=== PATIENT | female | born 1965 | race Two or more races ===

== ENCOUNTER → 2021-06-15 | Outpatient (CLI) | payer BC ==
[~2021-06-15] MED LIST: FOLI1TAB32 PO; HYDR200T72 PO; LOSA100T14 PO; METH2.5T PO
[2021-06-15 13:51] LABS: ALANINE AMINOTRANSFERASE 41 U/L (12-78); ALBUMIN 3.7 g/dL (3.4-5.0); ANION GAP 7 mmol/L (5-15); CALCIUM 8.9 mg/dL (8.5-10.1); CHLORIDE 114 mmol/L (98-107)
[2021-06-15 13:53] LABS: ALKALINE PHOSPHATASE 158 U/L (45-117); BILIRUBIN,TOTAL 0.5 mg/dL (0.2-1.0); TOTAL PROTEIN 7.4 g/dL (6.4-8.2)
== END | disposition home or self-care (01) ==
LOC: STAR 12:46
PROVIDERS: ATTEND Orthopaedic Surgery
DX: Z01.812 Encounter for preprocedural laboratory examination (principal); M17.12 Unilateral primary osteoarthritis, left knee; Z20.822 Contact with and (suspected) exposure to COVID-19
CPT/HCPCS: 36415; 80053; 87081; U0003; U0005

== ENCOUNTER 2021-06-19 07:04 | Day surgery (SDC) | payer BC ==
[~2021-06-19] VITALS: Ht 162.6 cm; Wt 100.1 kg
[2021-06-19] MEDS ORDERED: MAGNESIUM HYDROXIDE 8%, 30ML UDC PO PRN (07:30)
[2021-06-19] MEDS ORDERED: POLYETHYLENE GLYCOL 17 GM PACKET PO PRN (07:30)
[2021-06-19] MEDS ORDERED: DIPHENHYDRAMINE 50 MG/ML, 1ML IVPush PRN (07:30)
[2021-06-19] MEDS ORDERED: HYDROmorphone 1 MG/ML, 1ML INJ IVPush PRN ×2 (07:30→09:00)
[2021-06-19] MEDS ORDERED: ALUMINUM/MAG/SIMETHICONE 30 ML UDC PO PRN (07:30)
[2021-06-19] MEDS ORDERED: ACETAMINOPHEN 650 MG/20.3 ML UDC PO PRN (07:30)
[2021-06-19] MEDS ORDERED: OXYcodone IR 5MG TABLET PO PRN (07:30)
[2021-06-19] MEDS ORDERED: PSYLLIUM PACKET PO PRN (07:30)
[2021-06-19] MEDS ORDERED: SENNA/DOCUSATE TABLET PO PRN (07:30)
[2021-06-19] MEDS ORDERED: PROMETHAZINE 12.5 MG SUPP PR PRN (07:30)
[2021-06-19] MEDS ORDERED: METOCLOPRAMIDE 5 MG/ML, 2ML IVPush PRN (07:30)
[2021-06-19] MEDS ORDERED: ONDANSETRON 4 MG TABLET PO PRN (07:30)
[2021-06-19] MEDS ORDERED: ONDANSETRON 2MG/ML, 2ML IVPush PRN ×2 (07:30→09:00)
[2021-06-19 07:49] VITALS: BP 143/91
[2021-06-19] MEDS ORDERED: CHLORHEXIDINE 15 ML UDC ONE (07:54)
[2021-06-19] MEDS ORDERED: CHLORHEXIDINE 15 ML UDC PO ONE (08:00)
[2021-06-19] MEDS ORDERED: LACTATED RINGERS 1,000 ML IV SCH (08:00)
[2021-06-19] MEDS ORDERED: MEPERIDINE/PF 25MG/0.5ML IVPush PRN (09:00)
[2021-06-19] MEDS ORDERED: PROMETHAZINE 25 MG/ML, 1ML IVPush PRN (09:00)
[2021-06-19] MEDS ORDERED: KETOROLAC 30 MG/1 ML IVPush PRN (09:00)
[2021-06-19] MEDS ORDERED: LOSARTAN 100 MG TAB PO SCH (09:00)
[2021-06-19] MEDS ORDERED: DOCUSATE 100 MG CAPSULE PO SCH (09:00)
[2021-06-19] MEDS ORDERED: HYDROcodone/APAP 7.5-325MG/15ML UDC PO PRN (09:00)
[2021-06-19] MEDS ORDERED: OXYcodone 5 MG/5 ML ORAL.SOL UDC PO PRN (09:00)
[2021-06-19] MEDS ORDERED: TAMSULOSIN 0.4 MG CAP.ER.24H PO SCH (09:00)
[2021-06-19] MEDS ORDERED: FENTANYL PF 100 MCG/2ML ONE ×3 (10:04→13:53)
[2021-06-19] MEDS ORDERED: MIDAZOLAM 1 MG/ML, 2ML ONE (10:04)
[2021-06-19] MEDS ORDERED: SODIUM CHLORIDE 0.9% 50 ML ONE (10:44)
[2021-06-19] MEDS ORDERED: ROPIvacaine/PF 0.2%, 20 ML ONE (10:44)
[2021-06-19] MEDS ORDERED: TRANEXAMIC ACID 100 MG/ML, 10ML ONE (10:44)
[2021-06-19] MEDS ORDERED: KETOROLAC 60 MG/2 ML ONE (10:44)
[2021-06-19] MEDS ORDERED: EPINEPHRINE 1 MG/ML, 1ML INFIL ONE (12:00)
[2021-06-19] MEDS ORDERED: NEOSTIGMINE 1 MG/ML, 10ML ONE (12:40)
[2021-06-19] MEDS ORDERED: GLYCOPYRROLATE 0.2MG/1ML, 5ML ONE (12:40)
[2021-06-19] MEDS ORDERED: SUCCINYLCHOLINE 20 MG/ML, 10ML ONE (12:40)
[2021-06-19] MEDS ORDERED: ONDANSETRON 2MG/ML, 2ML ONE (12:40)
[2021-06-19] MEDS ORDERED: ROCURONIUM 10MG/ML,5ML ONE (12:40)
[2021-06-19] MEDS ORDERED: CEFAZOLIN 1,000 MG ONE (12:40)
[2021-06-19] MEDS ORDERED: DEXAMETHASONE 4 MG/ML, 1ML ONE (12:40)
[2021-06-19] MEDS ORDERED: PROPOFOL 10 MG/ML, 20ML ONE (12:40)
[2021-06-19] MEDS ORDERED: POTASSIUM CHLORIDE 20 MEQ in D5%-0.45% NACL 1,000 ML IV SCH (13:24)
[2021-06-19] MEDS ORDERED: TRANEXAMIC ACID 1,000 MG in SODIUM CHLORIDE 0.9% 100 ML IVPB ONE (13:32)
[2021-06-19] MEDS ORDERED: KETOROLAC 30 MG/1 ML ONE (13:46)
[2021-06-19] MEDS ORDERED: OXYcodone 5 MG/5 ML ORAL.SOL UDC ONE ×2 (13:53→13:58)
[2021-06-19] MEDS: FENTANYL PF 100 MCG/2ML IV PRN ×2 (13:56→14:05)
[2021-06-19] MEDS ORDERED: DIPHENHYDRAMINE 25 MG CAPSULE PO PRN (14:00)
[2021-06-19] MEDS ORDERED: HYDROmorphone 2 MG/ML, 1ML ONE (14:15)
[2021-06-19] MEDS ORDERED: ASPIRIN 81 MG TABLET EC PO SCH (18:00)
[2021-06-19] MEDS ORDERED: KETOROLAC 30 MG/1 ML IV SCH (18:30)
[2021-06-19] MEDS ORDERED: CEFAZOLIN PMX 1GM/50ML 50 ML IVPB SCH (20:41)
[2021-06-20] MEDS ORDERED: DEXAMETHASONE 4 MG/ML, 1ML IVPush ONE (06:00)
== END 2021-06-19 17:00 | disposition home or self-care (01) ==
LOC: OUT 07:04 → UNDOADMOB 07:10 → ORIP 07:10 → OUT 17:00 → 3WST 06-27 13:21 → ORIP 06-27 13:21
PROVIDERS: ATTEND Orthopaedic Surgery
DX: M17.12 Unilateral primary osteoarthritis, left knee (principal); I10 Essential (primary) hypertension
CPT/HCPCS: 27447; 73560; 97110; 97162; C1713; C1776; J0171; J0330; J0690; J1100; J1170; J1885; J2250; J2405; J2704; J2710; J2795; J3010; J7120